=== PATIENT | male | born 1980 | race Caucasian/White ===

== ENCOUNTER 2020-04-11 15:53 | Emergency (ER) | payer OTHER, SELFPAY ==
[2020-04-11 15:54] VITALS: BP 163/123; PULSE 119; RESP 20; TEMP 36; O2SAT 97; BMI 42.3
--- NOTE | 2020-04-11 16:11 | ED.VISSUMM ---
- ER Visit Summary Date of Service: 04/11/20 Chief Complaint: Bilateral foot pain and swelling History of Present Illness: The patient is a 39 M who presents with bilateral foot pain and swelling that is been getting worse over the past 5 days. Patient describes his pain as throbbing and cramping. Patient states he twisted his right foot 5 days ago and has been favoring it. Patient states his left foot is now gotten swollen and painful. Patient has been using ice and elevation with minimal relief. Patient states his pain is worse whenever he elevates his feet. Patient states his pain is worse with weightbearing as well. Patient denies any paresthesias or weakness. Physical Examination: Vital signs are stable. Patient is afebrile. Patient is in no acute distress. Musculoskeletal exam reveals tenderness edema and mild ecchymosis over the feet bilaterally. There is no bony crepitance or step-off. Range of motion was limited in all motions of the feet bilaterally secondary to pain. Sensation was intact to light touch in all digits. Capillary refill was less than 2 seconds in all digits. Pedal pulses are equal bilaterally. There is no tenderness over the ankles. There is no tenderness over the proximal fibula. Test Results: X-rays of the right foot were obtained. There are 3 views. On my interpretation, there is some mild degenerative changes. There is no acute fracture or dislocation noted. There is some soft tissue swelling noted. There is no evidence of osteomyelitis. X-rays of the left foot were obtained. There are 3 views. On my interpretation, there are some mild degenerative changes. There is no acute fracture or dislocation. There is some soft tissue swelling noted. There is no evidence of osteomyelitis. Radiologist also interpreted the x-rays and agrees. CBC shows a mild leukocytosis of 15.2. Basic metabolic profile shows normal renal function. Potassium was slightly low at 3.2. Emergency Department Course and Treatment: Patient was instructed to continue using ice and elevation. Patient was instructed to use Tylenol or ibuprofen for pain. Patient was given crutches. Patient was given walking boot to both feet. Patient was instructed to follow-up with his primary care physician in 5 to 7 days. Patient understood and was agreeable with the plan. All questions were answered. Disposition: Discharge home Impression: Bilateral foot sprain This note was generated with [employer] software. It may contain incorrect words, spelling, and punctuation that were not noted in review of the chart prior to signing ED Disposition - Plan for ED Patient: Disposition: Home or Assisted Living Diagnosis: Sprain of foot, right, Sprain of foot, left Instructions: ED Foot Sprain Referrals: Danny Wilcox MD [STAFF PHYSICIAN] - 5-7 Days
[2020-04-11 16:26] LABS: Absolute Lymphocyte Count 2.55 X10^3/uL (0.83-4.51); Absolute Neutrophil Count 11.2 X10^3/uL (2.0-7.7); Basophil# 0.04 X10^3/uL; Basophil% 0.3 % (0-1); Hematocrit 38.4 % (40-54); Hemoglobin 13.3 g/dL (13.0-16.5); Lymphocyte # 2.55 X10^3/ul (4.0); Lymphocyte % 16.7 % (19-41); Mean Corp Hgb Conc 34.6 g/dL (32-36); Mean Corpuscular Hgb 30.5 pg (27.0-32.0); Mean Corpuscular Volume 88.1 fL (80-94); Mean Platelet Vol. 9.4 fl (6.2-12.0); Monocyte# 1.38 X10^3/uL; Monocyte% 9.1 % (0-10); NRBC Flagged by Analyzer 0 % (0-5); Neutrophil # 11.22 X10^3/uL (2.7-7.7); Neutrophil % 73.6 % (47-70); Platelet Count 406 K/mm3 (150-450); RBC Distribution Width CV 12.3 % (11.6-14.6); RBC Distribution Width SD 39.5 fl (35.1-43.9); Red Blood Count 4.36 M/mm3 (4.6-6.2); White Blood Count 15.2 K/mm3 (4.4-11.0)
--- NOTE | 2020-04-11 16:34 | RAD_ITS ---
STUDY: X-RAY - RIGHT FOOT CLINICAL: Male, 39 years old. Swelling TECHNIQUE: 3 view(s) of the foot. COMPARISON: None. FINDINGS: There is no evidence of fracture or dislocation. There are mild degenerative changes in the midfoot. There is a plantar calcaneal spur noted. There is soft tissue swelling noted. There are no definite radiographic findings of osteomyelitis. There are no radiodense foreign bodies. RAD/Foot min 3 Views IMPRESSION: No fracture or dislocation in the right foot. Mild degenerative change. Soft tissue swelling. No definite radiographic findings of osteomyelitis. Electronically Signed: Ajit Gates, at 16:54 EST Tel , Service support ,
--- NOTE | 2020-04-11 16:34 | RAD_ITS ---
STUDY: X-RAY - LEFT FOOT CLINICAL: Male, 39 years old. Swelling TECHNIQUE: 3 view(s) of the foot. COMPARISON: None. FINDINGS: There is no evidence of fracture or dislocation. There are moderate degenerative changes in the midfoot. There is a plantar calcaneal spur noted. There is soft tissue swelling noted. There are no definite radiographic findings of osteomyelitis. There are no radiodense foreign bodies. RAD/Foot min 3 Views IMPRESSION: No fracture or dislocation in the left foot. Moderate degenerative change. Soft tissue swelling. No definite radiographic findings of osteomyelitis. Electronically Signed: Ajit Gates, at 16:55 EST Tel , Service support ,
[2020-04-11 16:38] LABS: Anion Gap 9 (5-15); BUN 8 mg/dL (7-18); BUN/Creat Ratio 7.8 RATIO (10-20); Calcium,Total 9.1 mg/dL (8.5-10.1); Chloride 99 mmol/L (98-107); Creatinine, Serum 1.03 mg/dL (0.70-1.30); EST Glomerular Filtration Rate 86 mL/min (>60); Est Glom Filt Rate - Afr Amer 104 mL/min (>60); Estimated Creatinine Clearance 113.06 ml/min; Glucose 110 mg/dL (74-106); Potassium 3.2 mmol/L (3.5-5.1); Sodium Level 135 mmol/L (136-145)
[2020-04-11 18:10] VITALS: BP 145/97; PULSE 101; RESP 18; O2SAT 99
== END 2020-04-11 18:28 | disposition home or self-care (01) ==
PROVIDERS: Emergency Provider Emergency Medicine
DX: S93.601A Unspecified sprain of right foot, initial encounter (principal); S93.602A Unspecified sprain of left foot, initial encounter; X50.1XXA Overexertion from prolonged static or awkward postures, initial encounter; Y93.9 Activity, unspecified; Y92.9 Unspecified place or not applicable; F17.220 Nicotine dependence, chewing tobacco, uncomplicated
CPT/HCPCS: 73630; 80048; 85025; 99283